=== PATIENT | female | born 1955 | race Caucasian/White ===

== ENCOUNTER 2017-03-11 12:20 | Emergency (ER) | payer BC ==
[2017-03-11 13:05] VITALS: BP 97/53
--- NOTE | 2017-03-11 13:15 | UC ---
Lower Extremity/Ankle HPI - HPI Summary HPI Summary: left 2nd toe pain x4 days stubbed her toe 4 days ago, + pain and mild swelling of the left 2nd toe pip - History of Current Complaint Chief Complaint: UCLowerExtremity Stated Complaint: LEFT FOOT 2ND TOE PAIN Time Seen by Provider: 03/11/17 12:41 Hx Obtained From: Patient Onset/Duration: Sudden Onset, Lasting Days - 4, Still Present Severity Initially: Moderate Severity Currently: Moderate Aggravating Factor(s): Standing, Ambulation Alleviating Factor(s): Rest, Elevation, Ice Able to Bear Weight: Yes - Allergies/Home Medications Allergies/Adverse Reactions: Allergies Allergy/AdvReac Type Severity Reaction Status Date / Time No Known Allergies Allergy Verified 03/11/17 13:05 PMH/Surg Hx/FS Hx/Imm Hx Previously Healthy: Yes Respiratory History: COPD - Surgical History Surgical History: None - Family History Known Family History: Positive: Respiratory Disease - Social History Alcohol Use: Weekly Substance Use Type: None Smoking Status (MU): Never Smoked Tobacco Review of Systems Constitutional: Negative Skin: Negative Eyes: Negative ENT: Negative Respiratory: Negative All Other Systems Reviewed And Are Negative: Yes Physical Exam Triage Information Reviewed: Yes Appearance: Well-Appearing, No Pain Distress, Well-Nourished Vital Signs: Initial Vital Signs Temp 98.7 F 03/11/17 12:57 Pulse 81 03/11/17 12:57 Resp 18 03/11/17 12:57 BP 97/53 03/11/17 12:57 Eye Exam: Normal Eyes: Positive: Conjunctiva Clear ENT: Positive: Normal ENT inspection, Hearing grossly normal, Pharynx normal Neck exam: Normal Neck: Positive: Supple Respiratory: Positive: Chest non-tender, Lungs clear, Normal breath sounds Cardiovascular: Positive: RRR, No Murmur, Pulses Normal Musculoskeletal: Positive: Other: - left 2nd toe : mild swelling pip, mild tenderness pip , limited ROM on flexion Lower Extremity Course/Dx - Differential Dx/Diagnosis Provider Diagnoses: sprain left 2nd toe Discharge - Discharge Plan Condition: Stable Disposition: HOME Patient Education Materials: Foot Sprain (ED) Referrals: Carolina Thapa MD [Primary Care Provider] - 7 Days
--- NOTE | 2017-03-11 13:38 | RAD ---
Indication: LEFT second toe pain following stubbing injury . Comparison: No relevant prior exams available on the [facility] [place] PACS for comparison. Technique: 3 views LEFT second toe. REPORT AND IMPRESSION: Negative for fracture or malalignment. Soft tissue swelling most prominent distally.
== END 2017-03-11 13:48 | disposition home or self-care (01) ==
LOC: UCCORT 12:20
DX: S93.505A Unspecified sprain of left lesser toe(s), initial encounter (principal); W22.8XXA Striking against or struck by other objects, initial encounter; Y93.9 Activity, unspecified; Y92.9 Unspecified place or not applicable; J44.9 Chronic obstructive pulmonary disease, unspecified
CPT/HCPCS: 99211; G0463

== ENCOUNTER 2019-05-30 07:01 | Emergency (ER) | payer MEDICARE, BC ==
[2019-05-30 07:18] VITALS: BP 123/56
--- NOTE | 2019-05-30 07:19 | UC ---
Lower Extremity/Ankle HPI - HPI Summary HPI Summary: Stubbed left 3rd toe on door yesterday, noted bruising and pain afterward. Did not fall, denies displacement of toe. Able to ambulate but painful. - History of Current Complaint Chief Complaint: UCLowerExtremity Stated Complaint: LT THIRD TOE INJURY Time Seen by Provider: 05/30/19 07:10 Hx Obtained From: Patient Onset/Duration: Sudden Onset, Lasting Days - one Pain Intensity: 8 - Allergies/Home Medications Allergies/Adverse Reactions: Allergies Allergy/AdvReac Type Severity Reaction Status Date / Time No Known Allergies Allergy Verified 05/30/19 07:10 PMH/Surg Hx/FS Hx/Imm Hx Previously Healthy: Yes Endocrine History: Hypothyroidism - Surgical History Surgical History: None - Family History Known Family History: Positive: Respiratory Disease - Social History Alcohol Use: Weekly Substance Use Type: None Smoking Status (MU): Never Smoked Tobacco Review of Systems All Other Systems Reviewed And Are Negative: Yes Constitutional: Positive: Negative Skin: Positive: Bruising - base of left 3rd toe. Eyes: Positive: Negative ENT: Positive: Negative Respiratory: Positive: Negative Cardiovascular: Positive: Negative Gastrointestinal: Positive: Negative Genitourinary: Positive: Negative Motor: Positive: Negative Neurovascular: Positive: Negative Musculoskeletal: Positive: Negative Neurological: Positive: Negative Psychological: Positive: Negative Is Patient Immunocompromised?: No Physical Exam Triage Information Reviewed: Yes Appearance: Well-Appearing, Other: - pain with ambulating. Vital Signs: Initial Vital Signs Temp 98.2 F 05/30/19 07:11 Pulse 90 05/30/19 07:11 Resp 13 05/30/19 07:11 BP 123/56 05/30/19 07:11 Pulse Ox 98 05/30/19 07:11 Eye Exam: Normal Respiratory: Positive: Lungs clear, Normal breath sounds Cardiovascular: Positive: RRR, No Murmur Musculoskeletal: Positive: Other: - bruising and tenderness at base of left 3rd toe, normal allignment, non-displaced, capillary refill brisk, sensation intact. Skin Exam: Normal Lower Extremity Course/Dx - Differential Dx/Diagnosis Differential Diagnosis/HQI/PQRI: Sprain Provider Diagnosis: Toe fracture, left Discharge ED - Sign-Out/Discharge Documenting (check all that apply): Patient Departure All imaging exams completed and their final reports reviewed: Yes - Discharge Plan Condition: Stable Disposition: HOME Patient Education Materials: Toe Fracture (ED) Referrals: Carolina Thapa MD [Primary Care Provider] - Additional Instructions: Rest, ice, elevate left foot. Utilize walking shoe for 3-4 weeks for pain. Fredo tape 3rd toe to 4th toe for 3-4 weeks. Over the counter Ibuprofen or Tylenol as needed for pain. - Billing Disposition and Condition Condition: STABLE Disposition: Home
== END 2019-05-30 07:50 | disposition home or self-care (01) ==
LOC: UCCORT 07:01
DX: S92.515A Nondisplaced fracture of proximal phalanx of left lesser toe(s), initial encounter for closed fracture (principal); W22.8XXA Striking against or struck by other objects, initial encounter; Y92.9 Unspecified place or not applicable; E03.9 Hypothyroidism, unspecified
CPT/HCPCS: 99213; G0463